=== PATIENT | female | born 1965 | race African-American/Black ===

== ENCOUNTER 2016-05-16 09:15 | Emergency (ER) | payer OTHER ==
[2016-05-16 09:19] VITALS: BP 142/86; PULSE 101; TEMP 99.6; BMI 25.8
--- NOTE | 2016-05-16 09:44 | PDOC ---
History of Present Illness - General Chief Complaint: Cold Symptoms Stated Complaint: Cold Symptoms/PAIN Time Seen by Provider: 05/16/16 09:35 History Source: Patient Exam Limitations: No Limitations - History of Present Illness Initial Comments: 05/16/16 09:41 Patient here with 2 days of fevers, chills, runny nose, generalized body aches. 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 Since that time is progressively become worse, has been using [id number] medications with minimal resolved. Timing/Duration: reports: changing over time, getting worse Severity: reports: mild, moderate Associated Symptoms: reports: chest pain/soreness, cough, fever/chills, nasal congestion, nasal drainage Past History - Travel Traveled outside of the country in the last 30 days: No Close contact w/someone who was outside of country & ill: No - Past Medical History Allergies/Adverse Reactions: Allergies Allergy/AdvReac Type Severity Reaction Status Date / Time No Known Allergies Allergy Verified 05/16/16 09:19 Home Medications: Ambulatory Orders Hydrochlorothiazide 25 mg PO PRN 08/11/15 Oseltamivir Phosphate [Tamiflu -] 75 mg PO BID #10 capsule 05/16/16 HTN: Yes - Immunization History Immunization Up to Date: Yes - Psycho/Social/Smoking Cessation Hx Anxiety: No Suicidal Ideation: No Smoking Status: No Smoking History: Never smoked Have you smoked in the past 12 months: No Number of Cigarettes Smoked Daily: 0 Hx Alcohol Use: No Drug/Substance Use Hx: No Substance Use Type: Alcohol Respiratory Specific PMHX - Complaint Specific PMHX Angina: No Bronchitis: No Pneumonia: No Pulmonary Embolus: No TB (Tuberculosis): No Review of Systems - Review of Systems Able to Perform ROS?: Yes Is the patient limited [place] proficient: Yes Constitutional: Yes: Symptoms Reported, See HPI, Chills, Fever, Loss of Appetite , Malaise, Weakness HEENTM: Yes: Symptoms Reported, See HPI, Nose Congestion, Throat Pain Respiratory: Yes: Symptoms reported, See HPI, Cough, Wheezing Cardiac (ROS): No: Symptoms Reported ABD/GI: Yes: Symptoms Reported, See HPI, Nausea, Poor Appetite : No: Symptoms Reported Neurological: Yes: Symptoms reported, See HPI, Headache All Other Systems: Reviewed and Negative *Physical Exam - Vital Signs Last Vital Signs Temp Pulse Resp BP Pulse Ox 99.6 F 101 H 20 142/86 98 05/16/16 09:17 05/16/16 09:17 05/16/16 09:05/16/16 09:05/16/16 09:17 - Physical Exam General Appearance: Yes: Appropriately Dressed, Apparent Distress, Mild Distress HEENT: positive: NATALIE, TMs Normal (congested but landmarks easily visualized), Nasal Congestion, Rhinorrhea Neck: positive: Supple, Lymphadenopathy (R), Lymphadenopathy (L). negative: Tender Respiratory/Chest: positive: Lungs Clear (coarse but clear., ). negative: Chest Tender Cardiovascular: positive: Regular Rhythm, Regular Rate Extremity: positive: Normal Capillary Refill, Normal Inspection Integumentary: positive: Normal Color, Pale Neurologic: positive: parent trainer II-XII NML intact, Fully Oriented, Alert, Normal Mood/ Affect, Normal Response, Motor Strength 5/5 *DC/Admit/Observation/Transfer Diagnosis at time of Disposition: Upper respiratory infection, acute - Discharge Dispostion Disposition: HOME Condition at time of disposition: Stable Admit: No - Prescriptions Prescriptions: Oseltamivir Phosphate [Tamiflu -] 75 mg PO BID #10 capsule - Patient Instructions Printed Discharge Instructions: DI for Viral Upper Respiratory Infection -- Adult Additional Instructions: Rest, drink lots of fluids: Teas, water, soups, Pedialyte Saltwater gargles Steamy showers/seem to face break up mucus Old-fashioned treatments help! Avoid contact with others until fevers and cough resolved as this is very contagious Lots of handwashing and good hygiene Continue [id number]-[id number] medications for symptomatic relief Tylenol or Motrin for fever and pain Take all of Tamiflu as directed: 1 tab every 12 hours for 5 days Followup with private physician in one to 2 days as needed or if worsening Return to emergency department for worsened symptoms, fevers, dehydration Influenza takes between 5 and 7 days for resolution To not participate in any activity, work, or school until fevers and cough are gone for at least one day - Post Discharge Activity Work/School Note: Back to Work
== END 2016-05-16 09:59 | disposition home or self-care (01) ==
LOC: JERFT 09:15
DX: J06.9 Acute upper respiratory infection, unspecified (principal); I10 Essential (primary) hypertension
CPT/HCPCS: 99281-25

== ENCOUNTER 2016-08-29 16:30 | Emergency (ER) | payer OTHER ==
[2016-08-29 16:36] VITALS: BP 129/43; PULSE 83; TEMP 98.8; BMI 25.0
[2016-08-29] MEDS ORDERED: KETOROLAC TROMETHAMINE 60 MG/2 ML VIAL ONE (17:49)
[2016-08-29 17:53] LABS: URINE APPEARANCE CLEAR; URINE BILIRUBIN NEGATIVE (NEGATIVE); URINE COLOR DKYELLOW; URINE GLUCOSE (UA) NEGATIVE (NEGATIVE); URINE KETONE TRACE (NEGATIVE); URINE LEUK ESTERASE NEGATIVE (NEGATIVE); URINE NITRITE NEGATIVE (NEGATIVE); URINE PROTEIN NEGATIVE (NEGATIVE); URINE UROBILINOGEN NEGATIVE E.U./dl (0.2-1.0)
[2016-08-29 17:57] LABS: URINE BLOOD 1+ (NEGATIVE)
[2016-08-29 18:00] LABS: URINE MUCUS RARE; URINE RBC 1 /hpf (0-3)
--- NOTE | 2016-08-29 18:08 | PDOC ---
History of Present Illness - General Chief Complaint: Pain Stated Complaint: LEG PAIN/EMPLOYEE Time Seen by Provider: 08/29/16 16:57 Past History - Past Medical History Allergies/Adverse Reactions: Allergies Allergy/AdvReac Type Severity Reaction Status Date / Time No Known Allergies Allergy Verified 08/29/16 16:36 HTN: Yes - Immunization History Immunization Up to Date: Yes - Psycho/Social/Smoking Cessation Hx Anxiety: No Suicidal Ideation: No Smoking Status: No Smoking History: Never smoked Have you smoked in the past 12 months: No Number of Cigarettes Smoked Daily: 0 Hx Alcohol Use: No Drug/Substance Use Hx: No Substance Use Type: None *Physical Exam - Vital Signs Last Vital Signs Temp Pulse Resp BP Pulse Ox 98.8 F 83 20 129/43 100 08/29/16 16:33 08/29/16 16:33 08/29/16 16:33 08/29/16 16:33 08/29/16 16:33 ED Treatment Course - ADDITIONAL ORDERS Additional order review: Laboratory Results 08/29/16 17:40 Urine Color Dkyellow Urine Appearance Clear Urine pH 6.0 Urine Protein Negative Urine Glucose (UA) Negative Urine Ketones Trace H Urine Blood 1+ H Urine Nitrite Negative Urine Bilirubin Negative Urine Urobilinogen Negative Ur Leukocyte Esterase Negative Urine HCG, Qual Negative - RADIOLOGY Radiology Studies Ordered: Category Date Time Status SPINE-LUMBAR SACRAL [RAD] Stat Radiology 08/29/16 17:31 Ordered
--- NOTE | 2016-08-29 18:08 | PDOC ---
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 Patient has multiple complaints states has pain to her right shoulder that radiates to her elbow, states has pain to her left hand that shoots up to left elbow, states sometimes has pain to her left gluteus. Patient has never been diagnosed with any chronic rheumatology issues and has had an evaluation for lumbar spine injury last year by Dr. tuttle. Was given Valium and anti-inflammatories with good resolved. Patient did not follow-up for any further visits. States is never sought medical attention for these issues but states woke up this morning with significant pain in the same dermatomes that ibuprofen did not resolve. Denies swelling to her leg although has sensation of swelling. Denies numbness or tingling to foot, denies any recent trauma, any chest exercise changes and has not been to the gym for over a month secondary to this pain. Occurred: reports: other Severity: reports: moderate Pain Location: reports: back Modifying Factors: improves with: None Loss of Consciousness: no loss of consciousness Past History - Travel Traveled outside of the country in the last 30 days: No Close contact w/someone who was outside of country & ill: No - Past Medical History Allergies/Adverse Reactions: Allergies Allergy/AdvReac Type Severity Reaction Status Date / Time No Known Allergies Allergy Verified 08/29/16 16:36 Home Medications: Ambulatory Orders Cyclobenzaprine HCl [Flexeril 10 mg] 10 mg PO BID PRN #14 tablet 08/29/16 Naproxen [Naprosyn -] 500 mg PO BID #14 tablet 08/29/16 HTN: Yes - Immunization History Immunization Up to Date: Yes - Psycho/Social/Smoking Cessation Hx Anxiety: No Suicidal Ideation: No Smoking Status: No Smoking History: Never smoked Have you smoked in the past 12 months: No Number of Cigarettes Smoked Daily: 0 Hx Alcohol Use: No Drug/Substance Use Hx: No Substance Use Type: None Trauma Specific PMHX - Complaint Specific PMHX Back Injury: Yes (last year treated for spasm ) Review of Systems - Review of Systems Able to Perform ROS?: Yes Is the patient limited Bulgarian proficient: Yes Constitutional: Yes: See HPI. No: Symptoms Reported, Fever, Malaise Respiratory: No: Symptoms reported : Yes: See HPI. No: Symptoms Reported, Burning, Dysuria, Frequency, Hematuria Musculoskeletal: Yes: Symptoms Reported, See HPI, Muscle Pain (anterior right thigh and extending to upper patella, in L2- L3 dermatome) Neurological: Yes: Tingling All Other Systems: Reviewed and Negative *Physical Exam - Vital Signs Last Vital Signs Temp Pulse Resp BP Pulse Ox 98.8 F 83 20 129/43 100 08/29/16 16:33 08/29/16 16:33 08/29/16 16:33 08/29/16 16:33 08/29/16 16:33 - Physical Exam General Appearance: Yes: Nourished, Appropriately Dressed, Apparent Distress, Mild Distress HEENT: positive: NATALIE, Normal ENT Inspection, TMs Normal, Pharynx Normal Neck: positive: Supple. negative: Tender, Lymphadenopathy (R), Lymphadenopathy (L) Respiratory/Chest: positive: Lungs Clear, Normal Breath Sounds Cardiovascular: positive: Regular Rhythm Gastrointestinal/Abdominal: positive: Soft Musculoskeletal: positive: Normal Inspection, Decreased Range of Motion (with slow gait. ), Muscle Spasm. negative: Vertebral Tenderness Extremity: positive: Normal Capillary Refill, Tender (mild tenderness to Quads drawn contraction, no defect, no obvious swelling or erythema. Patient has some tension and tightness culture to the paravertebral spine primarily lumbar. No point tenderness along the vertebral spine, crepitus or step-offs. Able to bend at waist,) Integumentary: positive: Normal Color, Dry, Warm, Pale. negative: Rash Neurologic: positive: rehabilitation services counselor II-XII NML intact, Fully Oriented, Alert, Normal Mood/ Affect, Normal Response, Motor Strength 5/5 ED Treatment Course - ADDITIONAL ORDERS Additional order review: Laboratory Results 08/29/16 17:40 Urine HCG, Qual Negative - RADIOLOGY Radiology Studies Ordered: Category Date Time Status SPINE-LUMBAR SACRAL [RAD] Stat Radiology 08/29/16 17:31 Ordered Progress Note - Progress Note Progress Note: Discussed structural issues with dermatomes and all of areas of patient's complaints consistent with lumbar spine dermatome pain. 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 Obtained lumbar spine x-rays to help clear for possible soft tissue studies including MRI as deemed necessary by orthopedist. Dr. Calvillo willing to see patient tomorrow. No evidence of muscle injury or DVT. Medical Decision Making - Medical Decision Making 08/29/16 19:19 X-ray negative for fractures, although so some straightening which confirms muscle spasm. Patient states has some improvement after Toradol injection and will continue with antispasmodic, NSAIDs and follow-up the Dr. Calvillo tomorrow. *DC/Admit/Observation/Transfer Diagnosis at time of Disposition: Low back strain Qualifiers: Encounter type: initial encounter Qualified Code(s): S39.012A - Strain of muscle, fascia and tendon of lower back, initial encounter - Discharge Dispostion Disposition: HOME Condition at time of disposition: Stable Admit: No - Prescriptions Prescriptions: Cyclobenzaprine HCl [Flexeril 10 mg] 10 mg PO BID PRN #14 tablet PRN Reason: spasm Naproxen [Naprosyn -] 500 mg PO BID #14 tablet - Patient Instructions Printed Discharge Instructions: DI for Back Strain or Sprain Additional Instructions: Rest, no heavy lifting or exercise until pain is resolved Hot soaks to neck and low back as often as possible/hot showers or Jacuzzis No massage or therapy until spasm is gone Continue Naprosyn 1-500 mg tablets every 8 hours for the next 3 days then as needed for pain and swelling Cyclobenzaprine 1-10mg every 8 hours as needed for spasm If not significant improvement within 24 hours with medication and rest regime, followup with private physician for change in medications and /or therapy. - Post Discharge Activity Work/School Note: Back to Work
[2016-08-29] MEDS ORDERED: CYCLOBENZAPRINE HCL 10 MG TABLET (FP) PO ONE (18:10)
[2016-08-29] MEDS ORDERED: CYCLOBENZAPRINE HCL 10 MG TABLET (FP) ONE (19:07)
== END 2016-08-29 19:27 | disposition home or self-care (01) ==
LOC: JERFT 16:30
DX: S39.012A Strain of muscle, fascia and tendon of lower back, initial encounter (principal); X50.0XXA Overexertion from strenuous movement or load, initial encounter; X50.9XXA Other and unspecified overexertion or strenuous movements or postures, initial encounter; Y93.F9 Activity, other caregiving; Y92.89 Other specified places as the place of occurrence of the external cause; Y99.0 Civilian activity done for income or pay; I10 Essential (primary) hypertension
CPT/HCPCS: 72100-TC; 81003; 81015; 84703; 99281-25

== ENCOUNTER 2018-01-26 17:07 | Emergency (ER) | payer OTHER ==
[2018-01-26 17:49] VITALS: BP 140/80; PULSE 80; TEMP 98; BMI 21.2
--- NOTE | 2018-01-26 17:52 | PDOC ---
History of Present Illness - General Chief Complaint: Bone Injury Stated Complaint: INJURY TO HAND (EMPLOYEE) Time Seen by Provider: 01/26/18 17:39 History Source: Patient Exam Limitations: No Limitations - History of Present Illness Initial Comments: 01/26/18 17:46 52 yr female with injury to right wrist/forearm after a cabinet fell on her arm. Occurred: reports: just prior to arrival Extremity Pain Location - Extremity Pain Location Extremity Pain Locations: right: other (wrist ) Past History - Past Medical History Allergies/Adverse Reactions: Allergies Allergy/AdvReac Type Severity Reaction Status Date / Time No Known Allergies Allergy Verified 01/26/18 17:35 Home Medications: Ambulatory Orders Naproxen [Naprosyn] 500 mg PO BID PRN #20 tablet 01/26/18 COPD: No CHF: No HTN: Yes - Immunization History Immunization Up to Date: Yes - Suicide/Smoking/Psychosocial Hx Smoking Status: No Smoking History: Never smoked Have you smoked in the past 12 months: No Number of Cigarettes Smoked Daily: 0 Information on smoking cessation initiated: No Hx Alcohol Use: No Drug/Substance Use Hx: No Substance Use Type: None Review of Systems - Review of Systems Able to Perform ROS?: Yes Is the patient limited Greek proficient: No Musculoskeletal: Yes: Symptoms Reported *Physical Exam - Vital Signs Last Vital Signs Temp Pulse Resp BP Pulse Ox 98 F 80 16 140/80 100 01/26/18 17:31 01/26/18 17:31 01/26/18 17:31 01/26/18 17:31 01/26/18 17:31 - Physical Exam General Appearance: Yes: Nourished, Appropriately Dressed HEENT: positive: EOMI, NATALIE Neck: positive: Supple Extremity: positive: Normal Capillary Refill, Normal Inspection, Normal Range of Motion, Tender (right distal radius , nv intact bruising noted to the distal radius ), Swelling Integumentary: positive: Normal Color, Dry, Warm, Bruising (right wrist distal radius ) Neurologic: positive: Fully Oriented, Normal Response, Motor Strength 5/5 Procedures - Splinting Splint Location: Right: Wrist (valentine wrap placed to wrist ) ED Treatment Course - RADIOLOGY Radiology Studies Ordered: Category Date Time Status FOREARM- RIGHT [RAD] Stat Radiology 01/26/18 17:44 Ordered WRIST W/HAND-RIGHT* [RAD] Stat Radiology 01/26/18 17:44 Ordered Medical Decision Making - Medical Decision Making 01/28/18 12:46 cc: right wrist injury cabinet fell from the wall onto the wrist at work causing pain and swelling pt is right hand dominant xray is negative for fracture will treat for bone contusion strict follow up ints. given pt agrees with plan of care 01/28/18 13:00 *DC/Admit/Observation/Transfer Diagnosis at time of Disposition: Contusion Qualifiers: Encounter type: initial encounter Contusion area: wrist Laterality: right Qualified Code(s): S60.211A - Contusion of right wrist, initial encounter - Discharge Dispostion Disposition: HOME Condition at time of disposition: Good - Prescriptions Prescriptions: Naproxen [Naprosyn] 500 mg PO BID PRN #20 tablet PRN Reason: Pain - Referrals Referrals: Masoud Amador [Primary Care Provider] - - Patient Instructions Additional Instructions: apply ice every 2hrs for 20 minutes for the next 2 days while awake use the valentine wrap at all times except to bathe and sleep take naproxen for pain as directed follow with your orthopedist this week if any worsening symptoms follow with employee health to be cleared to return to work - Post Discharge Activity Forms/Work/School Notes: Back to Work
[2018-01-26] MEDS ORDERED: NAPROXEN 500 MG TABLET (FP) PO ONE (18:02)
[2018-01-26] MEDS ORDERED: NAPROXEN 500 MG TABLET (FP) ONE (18:09)
== END 2018-01-26 18:18 | disposition home or self-care (01) ==
LOC: JERFT 17:07 → JER 17:07 → JERFT 18:18
DX: S60.211A Contusion of right wrist, initial encounter (principal); W22.8XXA Striking against or struck by other objects, initial encounter; Y93.89 Activity, other specified; Y92.238 Other place in hospital as the place of occurrence of the external cause; Y99.0 Civilian activity done for income or pay
CPT/HCPCS: 73090-TC-RT-FY; 73110-TC-RT-FY; 73130-TC-RT-FY; 99281-25

== ENCOUNTER 2018-02-02 06:48 | Observation (INO) | payer OTHER ==
[2018-02-02] MEDS ORDERED: NITROGLYCERIN SUBLINGUAL 1/150 0.4 MG TAB SL ONE ×2 (06:55→07:05)
[2018-02-02 06:57] VITALS: BMI 24.7
[2018-02-02] MEDS ORDERED: ASPIRIN 81 MG CHEWABLE TABLETS PO ONE (07:04)
[2018-02-02] MEDS ORDERED: MAG HYDROX/AL HYDROX/SIMETH 30 ML UNIT-DOSE CUP PO ONE (07:05)
--- NOTE | 2018-02-02 07:14 | PDOC ---
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 Patient reported intermittent midsternal chest pressure with no radiation or shortness of breath. Unclear if this is exertional. Never had a stress test or an echocardiogram in the past. No recent illnesses, fevers, chills, cough, vomiting. No history of blood clots. No family history of cardiac disease. Does not smoke. However, patient is noted that symptoms have worsened today. [place] a 10 out of 10 midsternal chest pressure reportedly described as crushing. Patient is brought to the ED and evaluated. She was given a sub-lingual nitroglycerin glycerin tablets with significant improvement of the chest pain. - Physicial Exam PE: 02/02/18 08:27 GENERAL: Awake, alert, and fully oriented, in no acute distress HEAD: No signs of trauma EYES: EOMI, sclera anicteric, conjunctiva clear ENT: Auricles normal inspection, hearing grossly normal, nares patent, Moist mucosa NECK: Normal ROM, supple LUNGS: Breath sounds equal, clear to auscultation bilaterally. No wheezes, and no crackles HEART: Regular rate and rhythm, normal S1 and S2, no murmurs, rubs or gallops ABDOMEN: Soft, nontender, No guarding, no rebound. No masses EXTREMITIES: Normal range of motion, no edema. No clubbing or cyanosis. No cords, erythema, or tenderness NEUROLOGICAL: Cranial nerves II through XII grossly intact. Normal speech SKIN: Warm, Dry, normal turgor, no rashes or lesions noted. - Medical Decision Making 02/02/18 08:27 Vital Signs Temp Pulse Resp BP Pulse Ox 98.0 F 67 15 144/102 H 100 02/02/18 06:54 02/02/18 07:32 02/02/18 07:32 02/02/18 07:32 02/02/18 07:32 Given the circumstances, we'll need to rule out myocardial infarction. We'll see and evaluate for acute coronary syndrome. Low suspicion for pulmonary embolism but will send a d-dimer. If the d-dimer is negative, I feel comfortable clearing the patient from pulmonary embolus and. Give aspirin and admit the patient to the hospital for further evaluation. 02/02/18 09:15 CBC, BMP 02/02/18 07:35 02/02/18 07:35 CMP Sodium 139 mmol/L (136-145) 02/02/18 07:35 Potassium 4.0 mmol/L (3.5-5.1) 02/02/18 07:35 Chloride 105 mmol/L (98-107) 02/02/18 07:35 Carbon Dioxide 26 mmol/L (21-32) 02/02/18 07:35 Anion Gap 8 MMOL/L (8-16) 02/02/18 07:35 BUN 11 mg/dL (7-18) 02/02/18 07:35 Creatinine 0.7 mg/dL (0.55-1.3) 02/02/18 07:35 Creat Clearance w eGFR > 60 (>60) 02/02/18 07:35 Random Glucose 89 mg/dL (74-106) 02/02/18 07:35 Calcium 8.9 mg/dL (8.5-10.1) 02/02/18 07:35 Total Bilirubin 1.0 mg/dL (0.2-1) 02/02/18 07:35 AST 25 U/L (15-37) 02/02/18 07:35 ALT 28 U/L (13-61) 02/02/18 07:35 Alkaline Phosphatase 78 U/L (45-117) 02/02/18 07:35 Creatine Kinase 111 IU/L (26-192) 02/02/18 07:35 Troponin I < 0.02 ng/ml (0.00-0.05) 02/02/18 07:35 Total Protein 7.0 g/dl (6.4-8.2) 02/02/18 07:35 Albumin 3.8 g/dl (3.4-5.0) 02/02/18 07:35 Cholesterol 228 mg/dL (50-200) H 02/02/18 07:35 Discharge Disposition - Diagnosis Chest pain Qualifiers: Chest pain type: unspecified Qualified Code(s): R07.9 - Chest pain, unspecified - Discharge Dispostion Condition at time of disposition: Stable Last Admission D/C Date: 06/26/00 Decision to Admit order: Yes - Referrals Referrals: Masoud Amador [Primary Care Provider] - - Patient Instructions - Post Discharge Activity Heart Score/ECG Review - History History: Highly suspicious - Electrocardiogram EKG: Normal - Age Age: 45-65 - Risk Factors Risk Factors Heart Score: Yes Hx Hypertension Based on the list above the patient has:: 1-2 risk factors - Troponin Troponin: </= normal limit - Score Heart Score - Total: 4 #1 ECG reviewed & interpreted by me at: 07:00 02/02/18 07:13 NSR 82, no std/madelyn, normal axis, normal intervals, T wave flat III, QTC 453 msec
[2018-02-02] MEDS ORDERED: MAG HYDROX/AL HYDROX/SIMETH 30 ML UNIT-DOSE CUP ONE (07:16)
[2018-02-02] MEDS ORDERED: ASPIRIN 81 MG CHEWABLE TABLETS ONE (07:16)
[2018-02-02] MEDS ORDERED: ACETAMINOPHEN 325 MG TABLET (FP) ONE ×2 (07:16→07:19)
--- NOTE | 2018-02-02 07:19 | PDOC ---
History of Present Illness - General Chief Complaint: Pain Stated Complaint: CHEST PAIN Time Seen by Provider: 02/02/18 07:07 - History of Present Illness Initial Comments: 02/02/18 07:48 The patient is a 52 year old female with a history of HTN who presents for evaluation of chest pain. The patient reports a 1 week history of intermittent chest pain. The patient states that earlier this morning she began experiencing crushing substernal chest pain that was persistent and more severe than in the past prompting her presentation to the ED for further evaluation. She denies any worsening symptoms with exercise and otherwise denies fevers, chills, SOB, nausea, vomiting, abdominal pain, or changes with urination or bowel movements. Past History - Past Medical History Allergies/Adverse Reactions: Allergies Allergy/AdvReac Type Severity Reaction Status Date / Time No Known Allergies Allergy Verified 02/02/18 06:53 Home Medications: Ambulatory Orders Hydrochlorothiazide [Hctz -] 25 mg PO ASDIR 02/02/18 COPD: No CHF: No HTN: Yes - Immunization History Immunization Up to Date: Yes - Suicide/Smoking/Psychosocial Hx Smoking Status: No Smoking History: Never smoked Have you smoked in the past 12 months: No Number of Cigarettes Smoked Daily: 0 Information on smoking cessation initiated: No Hx Alcohol Use: No Drug/Substance Use Hx: No Substance Use Type: None Review of Systems - Review of Systems Comments:: 02/02/18 07:53 Constitutional: No fevers, chills, fatigue, malaise HEENT: No Rhinorrhea, nasal congestion, visual changes Cardiovascular: Chest pain. No syncope, palpitations, lightheadedness Respiratory: No Cough, SOB, Hemoptysis, Gastrointestinal: No Abdominal pain, Nausea, Vomiting, Constipation, Diarrhea, Melena Genitourinary: No Dysuria, Frequency, Urgency, Hesitancy, Hematuria, Flank pain Musculoskeletal: No Myalgia, arthralgia Skin: No rashes, itching, bruising, pallor Neurologic: No Headache, Dizziness, Numbness, Weakness, or Tingling Psychiatric: No Hallucinations. No SI or HI *Physical Exam - Vital Signs Last Vital Signs Temp Pulse Resp BP Pulse Ox 98.0 F 91 H 20 182/124 H 100 02/02/18 06:54 02/02/18 06:54 02/02/18 06:54 02/02/18 06:54 02/02/18 06:54 - Physical Exam Comments: 02/02/18 08:00 General Appearance: Nourished. No Apparent Distress HEENT: No Pharyngeal Erythema, Tonsillar Exudate, Tonsillar Erythema Neck: No Cervical Lymphadenopathy Respiratory/Chest: Lungs Clear, Normal Breath Sounds. No Crackles, Rales, Rhonchi, Wheezing Cardiovascular: Regular Rhythm, Regular Rate. No Murmur, Gallops, Rubs Gastrointestinal/Abdominal: Normal Bowel Sounds, Soft. No Guarding, Rebound, Tenderness Musculoskeletal: No CVA Tenderness Extremity: Normal Capillary Refill Integumentary: Normal Color, Dry, Warm Neurologic: Fully Oriented, Alert, Normal Mood/Affect, Normal Response, Heart Score/ECG Review - History History: Highly suspicious - Electrocardiogram EKG: Normal - Age Age: 45-65 - Risk Factors Risk Factors Heart Score: Yes Hx Hypertension Based on the list above the patient has:: 1-2 risk factors - Troponin Troponin: </= normal limit - Score Heart Score - Total: 4 #1 ECG reviewed & interpreted by me at: 08:01 General ECG Interpretation: Sinus Rhythm, Normal Rate, Normal Intervals, No acute ischemic changes ED Treatment Course - LABORATORY CBC & Chemistry Diagram: 02/02/18 07:35 02/02/18 07:35 - Medications Given in the ED: ED Medications Discontinued Medications Generic Name Dose Route Start Last Admin Trade Name Freq PRN Reason Stop Dose Admin Nitroglycerin 0.4 mg 02/02/18 06:55 02/02/18 07:00 Nitrostat - SL 02/02/18 06:56 0.4 mg ONCE ONE Administration Nitroglycerin 0.4 mg 02/02/18 07:05 02/02/18 07:05 Nitrostat - SL 02/02/18 07:06 0.4 mg ONCE ONE Administration Medical Decision Making - Medical Decision Making 02/02/18 08:11 The patient is a 52 year old female with a history of HTN who presents for evaluation of chest pain. Differential includes but is not limited to: ACS, PE , Musculoskeletal, Infectious, Metabolic Derangement. Given the patient's history and physical exam, we will obtain a cbc, cmp, troponin, d-dimer, coags, ekg, chest plain film to evaluate further. The patient reports improvement in her symptoms after receiving nitroglycerin. We will treat with aspirin, mylanta , tylenol and continue to monitor and reassess while here in the ED. The patient will likely require observation admission given her presenting symptoms and exam. 02/02/18 16:04 CBC, cmp, troponin, d-dimer,coags are unremarkable. Chest plain film is unremarkable. However, given the patient's history as well as resolving chest pain with nitroglycerin, we believe she requires observation admission for further management and work up. We discussed the case with the admitting team who accepted the patient for admission. *DC/Admit/Observation/Transfer Diagnosis at time of Disposition: Chest pain Qualifiers: Chest pain type: unspecified Qualified Code(s): R07.9 - Chest pain, unspecified - Discharge Dispostion Condition at time of disposition: Stable Decision to Admit order: Yes - Referrals - Patient Instructions - Post Discharge Activity
[2018-02-02] MEDS ORDERED: ACETAMINOPHEN 325 MG TABLET (FP) PO ONE (07:58)
[2018-02-02 07:59] LABS: BASO % 0.7 % (0-2.0); EOS % 0.7 % (0-4.5); HEMATOCRIT 36.1 % (32.4-45.2); HEMOGLOBIN 12.6 GM/dL (10.7-15.3); LYMPH % 36.9 % (8-40); MCH 33.2 pg (25.7-33.7); MCHC 34.9 g/dl (32.0-36.0); MEAN CELL VOLUME 95.2 fl (80-96); MEAN PLT VOLUME 9.1 fl (7.5-11.1); MONO % 10.3 % (3.8-10.2); NEUT % 51.4 % (42.8-82.8); PLATELET COUNT 190 K/MM3 (134-434); RBC 3.79 M/mm3 (3.60-5.2); RDW 12.2 % (11.6-15.6); WHITE BLOOD COUNT 4.9 K/mm3 (4.0-10.0)
[2018-02-02 08:10] LABS: INR 1.12 (0.83-1.09); PROTHROMBIN TIME (PATIENT) 13.2 SEC (9.7-13.0)
[2018-02-02 08:12] LABS: ACTIVATED PTT 35.5 SECONDS (25.2-36.5)
[2018-02-02 09:01] LABS: ALBUMIN 3.8 g/dl (3.4-5.0); ALK PHOS 78 U/L (45-117); ANION GAP 8 MMOL/L (8-16); BLOOD UREA NITROGEN 11 mg/dL (7-18); CALCIUM 8.9 mg/dL (8.5-10.1); CHLORIDE 105 mmol/L (98-107); CHOLESTEROL 228 mg/dL (50-200); CO2 26 mmol/L (21-32); CREATININE 0.7 mg/dL (0.55-1.3); GLUCOSE,RANDOM 89 mg/dL (74-106); SGOT/AST 25 U/L (15-37); SGPT/ALT 28 U/L (13-61); SODIUM 139 mmol/L (136-145)
[2018-02-02] MEDS ORDERED: HYDROCHLOROTHIAZIDE 25 MG TABLET (FP) PO ONE (11:12)
[2018-02-02] MEDS ORDERED: HYDROCHLOROTHIAZIDE 25 MG TABLET (FP) ONE (11:13)
--- NOTE | 2018-02-02 11:40 | HP ---
CHIEF COMPLAINT: PCP:Masoud Amador MD HISTORY OF PRESENT ILLNESS: 52F with pmh of HTN and chronic lower back pain due to L2 L3 slipped disc, presents to the hospital with midsternal chest pain. She states she woke up to use the bathroom around 1am and noticed she was having chest pain. The pain did not get beteer by 3am and her brought her to the hospital. She denies Radiation of the pain, nausea, vomiting, fever, chills, shortness of breath, lower extremity edema, diaphoresis, GI, or symptoms. She states she has had chest pain for the last 4-5 weeks. She denies pain happening in certain situations. She states the pain has happened both at rest and during activity. Last night when she had an episode of chest pain she was watching a movie wit her daughters. ER course was notable for: (1)Aspirin (2)Labs (3)EKG Recent Travel:Denies PAST MEDICAL HISTORY:As above PAST SURGICAL HISTORY:Denies Social History: Smoking:Denies Alcohol:Denies Drugs: Denies Family History:Father of "heart condition and stroke at 72" Allergies No Known Allergies Allergy (Verified 02/02/18 06:53) HOME MEDICATIONS: Home Medications Medication Instructions Recorded Hydrochlorothiazide [Hctz -] 25 mg PO ASDIR 02/02/18 REVIEW OF SYSTEMS CONSTITUTIONAL: Absent: fever, chills, diaphoresis, generalized weakness, malaise, loss of appetite, weight change HEENT: Absent: rhinorrhea, nasal congestion, throat pain, throat swelling, difficulty swallowing, mouth swelling, ear pain, eye pain, visual changes CARDIOVASCULAR: Absent: syncope, palpitations, irregular heart rate, lightheadedness, peripheral edema Present:chest pain RESPIRATORY: Absent: cough, shortness of breath, dyspnea with exertion, orthopnea, wheezing, stridor, hemoptysis GASTROINTESTINAL: Absent: abdominal pain, abdominal distension, nausea, vomiting, diarrhea, constipation, melena, hematochezia GENITOURINARY: Absent: dysuria, frequency, urgency, hesitancy, hematuria, flank pain, genital pain MUSCULOSKELETAL: Absent: myalgia, arthralgia, joint swelling, neck pain Present: back pain SKIN: Absent: rash, itching, pallor HEMATOLOGIC/IMMUNOLOGIC: Absent: easy bleeding, easy bruising, lymphadenopathy, frequent infections ENDOCRINE: Absent: unexplained weight gain, unexplained weight loss, heat intolerance, cold intolerance NEUROLOGIC: Absent: headache, focal weakness or paresthesias, dizziness, unsteady gait, seizure, mental status changes, bladder or bowel incontinence PSYCHIATRIC: Absent: anxiety, depression, suicidal or homicidal ideation, hallucinations. PHYSICAL EXAMINATION Vital Signs - 24 hr 02/02/18 02/02/18 02/02/18 06:54 07:32 11:10 Temperature 98.0 F Pulse Rate 91 H Pulse Rate [ 67 69 Apical] Respiratory 20 15 15 Rate Blood Pressure 182/124 H Blood Pressure 146/100 [Left Arm] Blood Pressure 144/102 H 151/106 H [Right] O2 Sat by Pulse 100 100 100 Oximetry (%) GENERAL: Awake, alert, and fully oriented, in no acute distress. HEAD: Normal with no signs of trauma. EYES: Pupils equal, round and reactive to light, extraocular movements intact, sclera anicteric, conjunctiva clear EARS, NOSE, THROAT: Moist mucous membranes. NECK: Normal range of motion, supple without JVD LUNGS: Breath sounds equal, clear to auscultation bilaterally. No wheezes, and no crackles. No accessory muscle use. HEART: Regular rate and rhythm, normal S1 and S2 without murmur, rub or gallop. There is some sternal tenderness ABDOMEN: Soft, nontender, not distended, normoactive bowel sounds, no guarding, no rebound, no masses. MUSCULOSKELETAL: Normal range of motion at all joints. No bony deformities or tenderness. No CVA tenderness. UPPER EXTREMITIES: warm, well-perfused. No cyanosis. No clubbing. No peripheral edema. LOWER EXTREMITIES: warm, well-perfused. No calf tenderness. No peripheral edema. NEUROLOGICAL: Cranial nerves II-XII intact. Normal speech. PSYCHIATRIC: Cooperative. Good eye contact. Appropriate mood and affect. Tearful when told she has to stay. SKIN: Warm, dry, normal turgor Laboratory Results - last 24 hr 02/02/18 02/02/18 02/02/18 07:35 07:35 07:35 WBC 4.9 RBC 3.79 Hgb 12.6 Hct 36.1 MCV 95.2 MCH 33.2 MCHC 34.9 RDW 12.2 Plt Count 190 D MPV 9.1 Absolute Neuts (auto) 2.5 Neutrophils % 51.4 Lymphocytes % 36.9 D Monocytes % 10.3 H Eosinophils % 0.7 Basophils % 0.7 Nucleated RBC % 0 PT with INR 13.20 H INR 1.12 H PTT (Actin FS) 35.5 D-Dimer Sodium 139 Potassium 4.0 Chloride 105 Carbon Dioxide 26 Anion Gap 8 BUN 11 Creatinine 0.7 Creat Clearance w eGFR > 60 Random Glucose 89 Calcium 8.9 Total Bilirubin 1.0 AST 25 ALT 28 Alkaline Phosphatase 78 Creatine Kinase 111 Troponin I < 0.02 Total Protein 7.0 Albumin 3.8 Cholesterol 228 H 02/02/18 07:58 WBC RBC Hgb Hct MCV MCH MCHC RDW Plt Count MPV Absolute Neuts (auto) Neutrophils % Lymphocytes % Monocytes % Eosinophils % Basophils % Nucleated RBC % PT with INR INR PTT (Actin FS) D-Dimer 217 Sodium Potassium Chloride Carbon Dioxide Anion Gap BUN Creatinine Creat Clearance w eGFR Random Glucose Calcium Total Bilirubin AST ALT Alkaline Phosphatase Creatine Kinase Troponin I Total Protein Albumin Cholesterol EKG: LVH otherwise NSR CXR: No acute pathology ASSESSMENT/PLAN: 52F with history of HTN presents to the hospital for atypical chest pain. Atypical Chest pain: R/O ACS. Pain got better with nitroglycerin but also got Mylanta and Tylenol and feels much better. Patient has had pain for over a month. not exertional. COuld be costochondritis. Could be GERD Will place on observation trend troponins Lipid panel cardiology consult Echo Exercise stress test HTN/Hypertensive urgency Restart HCTZ 25mg PO daily MARCI better controlled now start Ramipril 5mg po daily Slipped disc at L2-L3 Pain control outpatient follow up FEN: No IVF No electrolyte issues regular diet PPx: Lovenox/SCDs Early ambulation Case discussed with attending Dr. Jennings Visit type - Emergency Visit Emergency Visit: Yes Care time: The patient presented to the Emergency Department on the above date and was hospitalized for further evaluation of their emergent condition. - New Patient This patient is new to me today: Yes Date on this admission: 02/02/18 - Critical Care Critical Care patient: No
[2018-02-02] MEDS ORDERED: ATORVASTATIN CA 10 MG TABLET (FP) PO ONE (11:49)
[2018-02-02] MEDS ORDERED: ATORVASTATIN CA 20 MG TABLET (FP) PO ONE (11:49)
[2018-02-02] MEDS ORDERED: RAMIPRIL 5 MG CAPSULE (FP) PO SCH (12:00)
[2018-02-02] MEDS ORDERED: amLODIPine BESYLATE 5 MG TABLET (FP) PO ONE (12:05)
--- NOTE | 2018-02-02 12:08 | PN ---
Teaching Attending Note Name of Resident: Radu Hahn ATTENDING PHYSICIAN STATEMENT I saw and evaluated the patient. I reviewed the resident's note and discussed the case with the resident. I agree with the resident's findings and plan as documented. SUBJECTIVE: OBJECTIVE: ASSESSMENT AND PLAN: this is a 52 y/o female patient with a history of newly diagnosed HTN, presented to the ER for an atypical chest pain that has been going on for the past few weeks, according to the patient this pain comes and goes retrosternal, can be exacerbated by movement. the patient feels tenderness on her chest if there is deep palpations plan: tele observation lipid panel consult cardiology stress test tomorrow start patient on atorvastatin 20mg daily obtain TSH obtain A1C HTN; start the patient on ramipril 5mg daily start chlorothaladone 25mg daily consider adding CCB if the patient BP is still elevated after uptitrating the ramipril to 10mg obtain A1C
[2018-02-02 12:12] LABS: HDL CHOLESTEROL 85 mg/dL (40-60); TRIGLYCERIDES 54 mg/dL (0-150)
--- NOTE | 2018-02-02 12:42 | CONSULT ---
Consult - text type - Consultation Consultation Note: Cardiology (Dr. Brice covering Dr. Aranda) Patient seen and examined in ED 52 yo AA female Employe in [employer] ED Known h/o HTN for the past 3 years Admits non-compliance with thiazide which she started 3 years ago No known h/o CAD, DM, tobacco use or HPL Very active female who exercises regularly. Was at the gym yesterday and of US[employer] In the evening developed moderate intensity chest pain and was present at 3AM When she awoke this AM was 10/10 severe intensity. No radiation of pain, no diaphoresis, dyspnea or associated nausea BP at home has been usually 130s/80s per her recollection She has been experiencing intermittent chest pains for the past 4-5 weeks with exertion. 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 No premature ASCVD. PE: BP 151/106mmHg, p 82/min Comfortable, no distress JVP normal, normal carotid upstroke Regular rate, no murmurs, no S4 Lungs are clear bilaterally Abd is soft without tenderness, no abd bruits Legs warm and perfused, no edema ECG: (02/02/2018 at 06:56 NSR at 82/min, no LVH no ishcemic changes. Labs: Trop 0.02, D-dimer 217 (neg), BUN/Cr 11/0.7, K 4, TC 228, HDL 85 IMP/Plan: 1) Hypertensive urgency -Etiology unclear but admits non-compliance with antihypertensive regimen -Ok to resume her HCTZ at 25mg daily -BP remains elevated and would add Amlodipine 5mg daily (first dose now) and monitor overnight for response -Chest pain without ischemic changes on ECG and troponin neg, likely related to HTN status. -She is an otherwise very active female and can safely follow up with Dr. Aranda as outpatient for further risk stratification.
[2018-02-02] MEDS ORDERED: amLODIPine BESYLATE 5 MG TABLET (FP) ONE (12:51)
[2018-02-02] MEDS ORDERED: ATORVASTATIN CA 10 MG TABLET (FP) ONE (12:52)
[2018-02-03 07:47] LABS: ANION GAP 6 MMOL/L (8-16); BLOOD UREA NITROGEN 9 mg/dL (7-18); CALCIUM 9.3 mg/dL (8.5-10.1); CHLORIDE 104 mmol/L (98-107); CO2 28 mmol/L (21-32); CREATININE 0.7 mg/dL (0.55-1.3); GLUCOSE,RANDOM 87 mg/dL (74-106); MAGNESIUM 2.1 mg/dL (1.8-2.4); PHOSPHOROUS 3.9 mg/dL (2.5-4.9); POTASSIUM 3.4 mmol/L (3.5-5.1); SODIUM 138 mmol/L (136-145)
--- NOTE | 2018-02-03 08:48 | PN ---
Progress Note, Physician Chief Complaint: cp History of Present Illness: no more cp. no back pain (had pain in L spine region where she has chronic pain from disc dz , but this was due to sleeping on sofa on DOA). no sob, orthopnea. no palpit, presyncope - Current Medication List Current Medications: Active Medications Atorvastatin Calcium (Lipitor -) 20 mg PO HS SAKSHI Chlorthalidone (Hygroton -) 25 mg PO DAILY SAKSHI Enoxaparin Sodium (Lovenox -) 40 mg SQ DAILY SAKSHI Ramipril (Altace -) 5 mg PO DAILY SAKSHI - Objective Vital Signs: Vital Signs Temperature 97.8 F 02/03/18 06:00 Pulse Rate 62 02/03/18 06:00 Respiratory Rate 18 02/03/18 06:00 Blood Pressure 117/71 02/03/18 06:00 O2 Sat by Pulse Oximetry (%) 100 02/03/18 05:00 Constitutional: Yes: Well Nourished, No Distress, Calm Cardiovascular: Yes: Regular Rate and Rhythm, S1, S2. No: Gallop, Murmur Respiratory: Yes: Regular, CTA Bilaterally. No: Accessory Muscle Use, Rales, Wheezes Extremities: No: Cold Edema: No Neurological: Yes: Alert, Oriented Psychiatric: No: Agitated Labs: CBC, BMP 02/02/18 07:35 02/03/18 05:30 INR, PTT INR 1.12 (0.83-1.09) H 02/02/18 07:35 Assessment/Plan ECG: (02/02/2018 at 06:56): NSR at 82/min, no LVH no ishcemic changes. CXR: central congestive changes vs weak insp effort. image reviewed: vasc redistribution pattern present, no effusion. normal mediastinum tele: NSR Hypertensive urgency, chest pain -initial BP 180s/120s--improved with thiazide (non-compliant with rx at home) -given HCTZ, amlodipine--bp controlled -changed to chlorthalidone, ramipril. 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 -needs close outpt f/u of BP control--agrees to f/u with us -chest pain without ischemic changes on ECG, and troponin neg x 3. suspect related to high BP on DOA (improved with BP control). sx's not suggestive of acute aorta pathology, normal mediastinum on CXR. -? chest pain etiology was GI related, gas/bloating--she is not certain -? mild chf present on CXR. no s/sx of chf. check BNP -echo and ETT today -plan d/c if testing is c/w low risk of CVD
[2018-02-03] MEDS ORDERED: PT OWN MED DRAWER 7, Y5N ONE (08:58)
[2018-02-03] MEDS ORDERED: HYDROCHLOROTHIAZIDE 25 MG TABLET (FP) PO SCH ×2 (10:00→10:45)
[2018-02-03] MEDS ORDERED: CHLORTHALIDONE 25 MG TABLET PO SCH (10:00)
[2018-02-03] MEDS ORDERED: ENOXAPARIN NA (PORCINE) 40 MG/0.4 ML DISP.SYRIN SQ SCH (10:00)
[2018-02-03] MEDS ORDERED: RAMIPRIL 5 MG CAPSULE (FP) PO SCH (10:00)
--- NOTE | 2018-02-03 10:33 | EKG ---
Test Reason : Blood Pressure : / mmHG Vent. Rate : 082 BPM Atrial Rate : 082 BPM P-R Int : 178 ms QRS Dur : 076 ms QT Int : 388 ms P-R-T Axes : 041 035 039 degrees QTc Int : 453 ms NORMAL SINUS RHYTHM NORMAL ECG WHEN COMPARED WITH ECG OF 11-AUG-2015 09:37, PREMATURE SUPRAVENTRICULAR COMPLEXES ARE NO LONGER PRESENT T WAVE VARIATION Confirmed by ERLIN THOMAS MD ([id number]) on 02/03/2018 10:32:44 AM Referred By: Confirmed By:ERLIN THOMAS MD
[2018-02-03 10:52] LABS: N-TERMINAL BNP 57.9 pg/ml (5-125)
--- NOTE | 2018-02-03 13:50 | TRE ---
Protocol Name : JOURDAN Max Work Load (METS*10) : 101 Time In Exercise Phase : 00:09:00 Max. Systolic BP : 182 mmHg Max Diastolic BP : 98 mmHg Max Heart Rate : 171 BPM Max Predicted Heart Rate : 167 BPM Attending Physician : DR. THOMAS Reason For Termination : Target Heart Rate Achieved Reason for Test : CHEST PAIN Stress Protocol : JOURDAN Rest HR : 100 BPM PeakEx METs : 10.1 METS Arrhythmias : Ventricular Premature Beats, Isolated Resting ECG : Normal Recovery ECG Response (OLD) : Overall Impression : Normal stress test Chest Pain : No Chest Pain HR Response To Exercise : Normal Overall HR Response To Exercise BP Response To Exercise : Normal Resting BP with Appropriate Response Functional Capacity : Above Average (> 20%) Diagnosis : 1. NEGATIVE STRESS TEST 2. APPROPRIATE BLOOD PRESSURE RESPONSE. PATIENT EXERCISED 9 MIN INTO STAGE 3 JOURDAN AND ACHIEVED 102% OF MPTHR 3. FAIR EXERCISE TOLERANCE AND CAPACITY 4. NO SIGNIFICANT ECG ABNORMALITIES WERE SEEN. OCCASIONAL PVCS Confirmed by MARTHA PERALES, ERLIN ([id number]) on 02/03/2018 1:50:29 PM
--- NOTE | 2018-02-03 13:56 | ECHO ---
Name: CARO YOKO Exam:Adult Echocardiogram Study Date: 02/03/2018 01:17 PM Age: 52 yrs Reason For Study: Chest pain Height: 68 in Weight: 165 lb BSA: 1.9 m2 MMode/2D Measurements & Calculations IVSd: 0.78 cm Ao root diam: 2.7 cm LVIDd: 4.4 cm LA dimension: 2.9 cm LVIDs: 2.8 cm LVPWd: 0.63 cm EDV(Teich): 87.9 ml LVOT diam: 1.9 cm ESV(Teich): 29.5 ml TAPSE: 2.2 cm RV S Kahlil: 11.7 cm/sec Doppler Measurements & Calculations MV E max kahlil: 64.5 cm/sec TR max kahlil: 219.0 cm/sec MV A max kahlil: 66.5 cm/sec TR max P.2 mmHg MV E/A: 0.97 Med Peak E' Kahlil: 5.9 cm/sec Med E/e': 11.0 Lat Peak E' Kahlil: 8.6 cm/sec Lat E/e': 7.5 Procedure A complete two-dimensional transthoracic echocardiogram was performed (2D, M-mode, Doppler and color flow Doppler). Left Ventricle The left ventricle is normal in size. Left ventricular systolic function is normal. Ejection Fraction = 65- 70%. No regional wall motion abnormalities noted. Right Ventricle The right ventricle is normal size. The right ventricular systolic function is normal. RV systolic TD I is 12 cm/s. Atria The left atrial size is normal. Right atrial size is normal. Mitral Valve There is mild mitral annular calcification. There is mild mitral regurgitation. Tricuspid Valve The tricuspid valve is normal in structure and function. There is mild tricuspid regurgitation. Right ventricular systolic pressure is normal. Aortic Valve There is mild aortic sclerosis.;. No aortic regurgitation is present. Pulmonic Valve The pulmonic valve is not well visualized. Trace to mild pulmonic valvular regurgitation. Great Vessels The aortic root is normal size. Pericardium/Pleura There is no pericardial effusion. Interpretation Summary The left ventricle is normal in size. Left ventricular systolic function is normal. No regional wall motion abnormalities noted. Ejection Fraction = 65-70%. The right ventricular systolic function is normal. The left atrial size is normal. Right atrial size is normal. There is mild mitral annular calcification. There is mild mitral regurgitation. There is mild tricuspid regurgitation. Right ventricular systolic pressure is normal. There is mild aortic sclerosis. No aortic regurgitation is present. Trace to mild pulmonic valvular regurgitation. There is no pericardial effusion. Previous study is not available for comparison Zain Araya MD 02/03/2018 01:55 PM
--- NOTE | 2018-02-03 15:31 | PN ---
Teaching Attending Note Name of Resident: Matilda Huerta ATTENDING PHYSICIAN STATEMENT I saw and evaluated the patient. I reviewed the resident's note and discussed the case with the resident. I agree with the resident's findings and plan as documented. SUBJECTIVE: Patient presented with ~3 weeks of atypical chest pain. Presented in hypertensive urgency. She was on thiazide diuretic as an outpatient but has not been compliant; restarted on her home meds to good effect. Sx remain resolved. Negative Stress test and echo with EF wnl w/o any WMAs. Pain likely 2/2 HTN Urgency. Encouraged complaince with her meds, ASA for primary prevention. JNC8 guidelines recommended for OP BP management. OBJECTIVE: VSS, BP improved at goal. Gen: AAOx3, NAD, resting in bed CV: RRR s1/2 no mgr Pulm: Lungs clear, sym exp GI: NT ND +BS x4 quads Ext: +pulses, no edema HEENT: NC AT EOMI PERRLA Neck: No jvd, trachea midline ASSESSMENT AND PLAN: 1) HTN Urgency 2) Atypical CP 3) Uncontrolled HTN 4) HLD 5) Overweight (BMI 24) DC on home meds for BP and encouraged compliance; followup with PCP for GDMT. Continue all other medications; ASA for primary prevention. Further management as per resident note. 35 minutes spent in this DC
--- NOTE | 2018-02-03 15:44 | DS ---
Physical Exam: SUBJECTIVE: Patient seen and examined at bedside this morning. She denies chest pain, palpitations, admits resolution of presenting symptoms. OBJECTIVE: Vital Signs Period Temp Pulse Resp BP Sys/Morrell Pulse Ox Last 24 Hr 97.8 F-98.4 F 62-79 15-20 117-162/68-100 100-100 PHYSICAL EXAM GENERAL: The patient is awake, alert, and fully oriented, in no acute distress. HEAD: Normal with no signs of trauma. EYES: PERRL, extraocular movements intact, sclera anicteric, conjunctiva clear. ENT: Ears normal, nares patent, oropharynx clear without exudates, moist mucous membranes. NECK: Trachea midline, full range of motion, supple. LUNGS: Breath sounds equal, clear to auscultation bilaterally, no wheezes, no crackles, no accessory muscle use. HEART: Regular rate and rhythm, S1, S2 without murmur, rub or gallop. ABDOMEN: Soft, nontender, nondistended, normoactive bowel sounds, no guarding, no rebound, no hepatosplenomegaly, no masses. EXTREMITIES: 2+ pulses, warm, well-perfused, no edema. NEUROLOGICAL: Cranial nerves II through XII grossly intact. Normal speech, gait not observed. PSYCH: Normal mood, normal affect. SKIN: Warm, dry, normal turgor, no rashes or lesions noted. LABS Laboratory Results - last 24 hr 02/02/18 02/03/18 02/03/18 19:40 05:30 05:30 Sodium 138 Potassium 3.4 L Chloride 104 Carbon Dioxide 28 Anion Gap 6 L BUN 9 Creatinine 0.7 Creat Clearance w eGFR > 60 Random Glucose 87 Hemoglobin A1c % 5.0 Calcium 9.3 Phosphorus 3.9 Magnesium 2.1 Troponin I < 0.02 B-Natriuretic Peptide 57.9 HOSPITAL COURSE: Date of Admission:02/02/18 Date of Discharge: 02/03/18 Patient is a 52 year old female with history of hypertension presented with complaint of chest pain. BP was 182/124. Started on Chlorthalidone and Ramipril , and EKG showed normal sinus rhythm at 82 beats per minute without ischemic changes. ECHO showed normal LV size, thickness, function with EF 65-70%. Stress test negative for ischemia. Cardiology consult discussed outpatient follow up with negative testing results. Chest pain resolved, without recurrence of presenting symptoms during hospital course. Discharged with home medication HCTZ, and new medications ramipril, and atorvastatin. Follow up with drawing box tender, and primary care provider within 3-5 days after discharge. Discussed importance of BP medication compliance, and follow up as outpatient. Minutes to complete discharge: 37 Discharge Summary Reason For Visit: CHEST PAIN Current Active Problems Chest pain (Acute) Condition: Stable - Instructions Diet, Activity, Other Instructions: You were evaluated for chest pain. You stress test, echocardiogrm, and EKG were negative. You will continue taking your Hydrochlorothiazide 25mg daily for your blood pressure You will also start taking Ramipril 5mg daily for your blood pressure Check your blood pressure daily and record the findings. Bring the records with you to your doctor's visits. Follow up with your primary care physician within the next 3-5 days. At that visit you will need blood work (BMP) done. A referral has been provided for you. You will also follow up with the drawing box tender within the next 3-5 days. Referrals: Toby Bright MD [Staff Physician] - 02/04/18 (Dr. Palacio Saturday AM) Kuldip Aranda MD [Staff Physician] - Masoud Amador [Primary Care Provider] - 02/06/18 Disposition: HOME - Home Medications Comprehensive Discharge Medication List: Ambulatory Orders Hydrochlorothiazide [Hctz -] 25 mg PO ASDIR 02/02/18 Atorvastatin Ca [Lipitor] 20 mg PO HS 30 Days #30 tablet 02/03/18 Hydrochlorothiazide [Hctz -] 25 mg PO DAILY 30 Days #0 tablet 02/03/18 Miscellaneous Medical Supply [Outpatient Order] 1 each ASDIR #1 misc Ramipril [Altace] 5 mg PO DAILY 30 Days #30 capsule 02/03/18 This patient is new to me today: Yes Date on this admission: 02/03/18 Emergency Visit: Yes ED Registration Date: 02/02/18 Care time: The patient presented to the Emergency Department on the above date and was hospitalized for further evaluation of their emergent condition. Critical Care patient: No - Discharge Referral Referred to [facility] No
[2018-02-03 16:14] VITALS: BP 117/66; PULSE 62; TEMP 97.2
[2018-02-03] MEDS ORDERED: ATORVASTATIN CA 20 MG TABLET (FP) PO SCH (22:00)
== END 2018-02-03 16:35 | disposition home or self-care (01) ==
LOC: JER 06:48 → JERBED 11:09 → J4W 18:54
PROVIDERS: ADMIT Internal Medicine; ATTEND Internal Medicine
DX: R07.89 Other chest pain (principal); I16.0 Hypertensive urgency; I10 Essential (primary) hypertension; E66.3 Overweight; Z68.24 Body mass index [BMI] 24.0-24.9, adult; E78.5 Hyperlipidemia, unspecified
CPT/HCPCS: 36415; 71045-TC-FY; 80048; 80053; 80061; 82550; 83036; 83721; 83735; 83880; 84100; 84484; 85025; 85379; 85610; 85730; 93005; 93010; 93017; 93018; 93306-TC; 99285-25; G0378

== ENCOUNTER 2018-07-03 16:25 | Emergency (ER) | payer OTHER ==
[2018-07-03 16:57] VITALS: TEMP 98.8; BMI 24.7
[2018-07-03] MEDS ORDERED: HYDROCHLOROTHIAZIDE 25 MG TABLET (FP) PO ONE (17:34)
--- NOTE | 2018-07-03 17:34 | PDOC ---
History of Present Illness <KitNatty - Last Filed: 07/03/18 19:22> <MichaelJaida - Last Filed: 07/03/18 19:47> - General Chief Complaint: Blood Pressure Problem Stated Complaint: HIGH BLOOD PRESSURE Time Seen by Provider: 07/03/18 17:17 Past History <KitMelviy - Last Filed: 07/03/18 19:22> - Past Medical History COPD: No CHF: No HTN: Yes - Immunization History Immunization Up to Date: Yes - Suicide/Smoking/Psychosocial Hx Smoking Status: No Smoking History: Never smoked Have you smoked in the past 12 months: No Number of Cigarettes Smoked Daily: 0 Information on smoking cessation initiated: No Hx Alcohol Use: No Drug/Substance Use Hx: No Substance Use Type: None Hx Substance Use Treatment: No <MichaelJaida - Last Filed: 07/03/18 19:47> - Past Medical History Allergies/Adverse Reactions: Allergies Allergy/AdvReac Type Severity Reaction Status Date / Time No Known Allergies Allergy Verified 02/02/18 06:53 Home Medications: Ambulatory Orders Atorvastatin Ca [Lipitor] 20 mg PO HS 30 Days #30 tablet 02/03/18 Hydrochlorothiazide [Hctz -] 25 mg PO DAILY 30 Days #0 tablet 02/03/18 Ramipril [Altace] 5 mg PO DAILY 30 Days #30 capsule 02/03/18 Hydrochlorothiazide 25 mg PO DAILY #30 tablet 07/03/18 Ramipril 5 mg PO DAILY #30 capsule 07/03/18 Review of Systems - Review of Systems Able to Perform ROS?: Yes Comments:: 07/03/18 19:22 GENERAL/CONSTITUTIONAL: No fever or chills. No weakness. HEAD, EYES, EARS, NOSE AND THROAT: No change in vision. No ear pain or discharge. No sore throat. CARDIOVASCULAR: No chest pain or shortness of breath. RESPIRATORY: No cough, wheezing, or hemoptysis. GASTROINTESTINAL: No nausea, vomiting, diarrhea or constipation. GENITOURINARY: No dysuria, frequency, or change in urination. MUSCULOSKELETAL: No joint or muscle swelling or pain. No neck or back pain. SKIN: No rash NEUROLOGIC: +dizziness. No headache, loss of consciousness, or change in strength/sensation. ENDOCRINE: No increased thirst. No abnormal weight change. HEMATOLOGIC/LYMPHATIC: No anemia, easy bleeding, or history of blood clots. ALLERGIC/IMMUNOLOGIC: No hives or skin allergy. <Natty Pantoja - Last Filed: 07/03/18 19:22> *Physical Exam - Vital Signs Last Vital Signs Temp Pulse Resp BP Pulse Ox 98.8 F 72 16 146/94 100 07/03/18 16:25 07/03/18 17:37 07/03/18 17:37 07/03/18 17:37 07/03/18 17:37 - Physical Exam Comments: 07/03/18 19:24 GENERAL: appears anxious. Awake, alert, and fully oriented, in no acute distress HEAD: No signs of trauma EYES: PERRLA, EOMI, sclera anicteric, conjunctiva clear ENT: Auricles normal inspection, hearing grossly normal, nares patent, oropharynx clear without exudates. Moist mucosa NECK: Normal ROM, supple, no lymphadenopathy, JVD, or masses LUNGS: Breath sounds equal, clear to auscultation bilaterally. No wheezes, and no crackles HEART: Regular rate and rhythm, normal S1 and S2, no murmurs, rubs or gallops ABDOMEN: Soft, nontender, normoactive bowel sounds. No guarding, no rebound. No masses EXTREMITIES: Normal range of motion, no edema. No clubbing or cyanosis. No cords, erythema, or tenderness NEUROLOGICAL: Cranial nerves II through XII grossly intact. Normal speech, normal gait SKIN: Warm, Dry, normal turgor, no rashes or lesions noted. <Natty Pantoja - Last Filed: 07/03/18 19:22> - Vital Signs Last Vital Signs Temp Pulse Resp BP Pulse Ox 98.8 F 79 18 177/115 H 100 07/03/18 16:25 07/03/18 16:25 07/03/18 16:25 07/03/18 16:25 07/03/18 16:25 <Jaida Rodriguez - Last Filed: 07/03/18 19:47> Moderate Sedation - Procedure Monitoring Vital Signs: Procedure Monitoring Vital Signs Temperature 98.8 F 07/03/18 16:25 Pulse Rate 72 07/03/18 17:37 Respiratory Rate 16 07/03/18 17:37 Blood Pressure 146/94 07/03/18 17:37 O2 Sat by Pulse Oximetry (%) 100 07/03/18 17:37 <Natty Pantoja - Last Filed: 07/03/18 19:22> - Procedure Monitoring Vital Signs: Procedure Monitoring Vital Signs Temperature 98.8 F 07/03/18 16:25 Pulse Rate 79 07/03/18 16:25 Respiratory Rate 18 07/03/18 16:25 Blood Pressure 177/115 H 07/03/18 16:25 O2 Sat by Pulse Oximetry (%) 100 07/03/18 16:25 <Jaida Rodriguez - Last Filed: 07/03/18 19:47> Heart Score/ECG Review - ECG Intrepretation Comment:: 07/03/18 18:21 sinus at 64, nl axis, nl interval, no acute st/t wave findings <Jaida Rodriguez - Last Filed: 07/03/18 19:47> ED Treatment Course - LABORATORY CBC & Chemistry Diagram: 07/03/18 17:37 07/03/18 17:37 - ADDITIONAL ORDERS Additional order review: Laboratory Results 07/03/18 07/03/18 17:37 17:37 PT with INR 12.10 INR 1.03 PTT (Actin FS) 36.7 H Sodium 137 Potassium 3.9 Chloride 104 Carbon Dioxide 27 Anion Gap 6 L BUN 15 Creatinine 0.8 Creat Clearance w eGFR 74.75 Random Glucose 93 Calcium 9.5 Magnesium 2.4 Total Bilirubin 0.7 AST 34 ALT 47 Alkaline Phosphatase 99 Creatine Kinase 105 Troponin I < 0.02 B-Natriuretic Peptide 131.4 H Total Protein 7.4 Albumin 3.8 07/03/18 17:37 RBC 3.92 MCV 97.6 H MCHC 34.8 RDW 12.1 MPV 9.7 Neutrophils % 53.4 Lymphocytes % 35.7 Monocytes % 9.0 Eosinophils % 1.1 Basophils % 0.8 - Medications Given in the ED: ED Medications Discontinued Medications Generic Name Dose Route Start Last Admin Trade Name Freq PRN Reason Stop Dose Admin Hydrochlorothiazide 25 mg 07/03/18 17:34 07/03/18 17:58 Hctz - PO 07/03/18 17:35 25 mg ONCE ONE Administration <Natty Pantoja - Last Filed: 07/03/18 19:22> - LABORATORY CBC & Chemistry Diagram: 07/03/18 17:37 07/03/18 17:37 <Jaida Rodriguez - Last Filed: 07/03/18 19:47> Medical Decision Making - Medical Decision Making 07/03/18 18:19 53yo female with hx of htn presnets with dizziness and feeling lightheaded -has not taken hctz for 3 days - ran out -did take her ramipril -has been stressed at work and feeling tired all of the time -neuro intact -no cp/sob -will send labs, ekg -will dose hctz -pt is nontoxic in appearance 07/03/18 18:27 pt feeling better up walking around and has a steady gait 07/03/18 19:46 repeat bp 144/92 stable for dc will refill rx <Jaida Rodriguez - Last Filed: 07/03/18 19:47> *DC/Admit/Observation/Transfer - Attestations Scribe Attestion: 07/03/18 19:24 Documentation prepared by Natty Pantoja, acting as biomedical engineering professor for Jaida Rodriguez DO. <Natty Pantoja - Last Filed: 07/03/18 19:22> - Discharge Dispostion Decision to Admit order: No - Attestations Physician Attestion: 07/03/18 19:46 I, Dr. Jaida Rodriguez DO, attest that this document has been prepared under my direction and personally reviewed by me in its entirety. I further attest, that it accurately reflects all work, treatment, procedures and medical decision -making performed by me. <Jaida Rodriguez - Last Filed: 07/03/18 19:47> Diagnosis at time of Disposition: Uncontrolled hypertension - Discharge Dispostion Disposition: HOME Condition at time of disposition: Stable - Prescriptions Prescriptions: Hydrochlorothiazide 25 mg PO DAILY #30 tablet Ramipril 5 mg PO DAILY #30 capsule - Referrals Referrals: Ernesto Hope MD [Staff Physician] - Julia Solomon [Staff Physician] - Dmitry Mujica MD [Staff Physician] - - Patient Instructions Printed Discharge Instructions: DI for High Blood Pressure Additional Instructions: Please take all medications as prescribed. Please watch your salt intake. Please remember to take a deep breath. I appreciate all your hard work each day. I hope you feel better.
[2018-07-03 17:38] VITALS: BP 146/94; PULSE 72
[2018-07-03] MEDS ORDERED: HYDROCHLOROTHIAZIDE 25 MG TABLET (FP) ONE (17:54)
[2018-07-03 18:31] LABS: BASO % 0.8 % (0-2.0); EOS % 1.1 % (0-4.5); HEMATOCRIT 38.3 % (32.4-45.2); HEMOGLOBIN 13.3 GM/dL (10.7-15.3); LYMPH % 35.7 % (8-40); MCH 33.9 pg (25.7-33.7); MCHC 34.8 g/dl (32.0-36.0); MEAN CELL VOLUME 97.6 fl (80-96); MEAN PLT VOLUME 9.7 fl (7.5-11.1); NEUT % 53.4 % (42.8-82.8); PLATELET COUNT 169 K/MM3 (134-434); RBC 3.92 M/mm3 (3.60-5.2); RDW 12.1 % (11.6-15.6); WHITE BLOOD COUNT 4.1 K/mm3 (4.0-10.0)
[2018-07-03 18:45] LABS: INR 1.03 (0.83-1.09); PROTHROMBIN TIME (PATIENT) 12.1 SEC (9.7-13.0)
[2018-07-03 18:48] LABS: ACTIVATED PTT 36.7 SECONDS (25.2-36.5)
[2018-07-03 19:09] LABS: ALBUMIN 3.8 g/dl (3.4-5.0); ALK PHOS 99 U/L (45-117); ANION GAP 6 MMOL/L (8-16); BILIRUBIN,TOTAL 0.7 mg/dL (0.2-1); BLOOD UREA NITROGEN 15 mg/dL (7-18); CALCIUM 9.5 mg/dL (8.5-10.1); CHLORIDE 104 mmol/L (98-107); CO2 27 mmol/L (21-32); CREATININE 0.8 mg/dL (0.55-1.3); GLUCOSE,RANDOM 93 mg/dL (74-106); MAGNESIUM 2.4 mg/dL (1.8-2.4); N-TERMINAL BNP 131.4 pg/ml (5-125); POTASSIUM 3.9 mmol/L (3.5-5.1); SGOT/AST 34 U/L (15-37); SGPT/ALT 47 U/L (13-61); SODIUM 137 mmol/L (136-145); TOT PROT 7.4 g/dl (6.4-8.2)
[2018-07-03 19:40] LABS: URINE APPEARANCE SLCLOUDY; URINE BILIRUBIN NEGATIVE (<2.0 mg/dL); URINE COLOR YELLOW; URINE GLUCOSE (UA) NEGATIVE (NEGATIVE); URINE KETONE NEGATIVE (NEGATIVE); URINE LEUK ESTERASE NEGATIVE (NEGATIVE); URINE NITRITE NEGATIVE (NEGATIVE); URINE PROTEIN NEGATIVE (NEGATIVE); URINE UROBILINOGEN NEGATIVE mg/dL (0.2-1.0)
--- NOTE | 2018-07-04 11:05 | EKG ---
Test Reason : Blood Pressure : / mmHG Vent. Rate : 064 BPM Atrial Rate : 064 BPM P-R Int : 184 ms QRS Dur : 078 ms QT Int : 400 ms P-R-T Axes : 049 025 030 degrees QTc Int : 412 ms NORMAL SINUS RHYTHM NORMAL ECG WHEN COMPARED WITH ECG OF 02-FEB-2018 06:56, NO SIGNIFICANT CHANGE WAS FOUND Confirmed by YUMIKO PERAZA MD ([id number]) on 07/04/2018 11:05:41 AM Referred By: Confirmed By:YUMIKO PERAZA MD
== END 2018-07-03 20:46 | disposition home or self-care (01) ==
LOC: JER 16:25
DX: I10 Essential (primary) hypertension (principal)
CPT/HCPCS: 36415; 80053; 81003; 82550; 83735; 83880; 84484; 85025; 85610; 85730; 93005; 93010; 99283-25

== ENCOUNTER 2019-04-13 18:29 | Emergency (ER) | payer OTHER ==
--- NOTE | 2019-04-13 18:39 | PDOC ---
Rapid Medical Evaluation Time Seen by Provider: 04/13/19 18:37 Medical Evaluation: Allergies Allergy/AdvReac Type Severity Reaction Status Date / Time No Known Allergies Allergy Verified 07/03/18 20:44 04/13/19 18:37 I performed a brief in-person evaluation of this patient. 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 No change in bladder/bowel habits. No weakness/numbness in legs. Took ibuprofen and applied heat without relief. Pertinent physical exam findings: No midline vertebral tenderness Left lumbar paravertebral tenderness Normal strength and sensation I have ordered the following: None Patient to proceed to FT for further evaluation. Discharge Disposition - Diagnosis Back pain - Referrals - Patient Instructions - Post Discharge Activity
[2019-04-13 18:40] VITALS: BP 130/85; TEMP 98.1; BMI 23.9
[2019-04-13] MEDS ORDERED: KETOROLAC TROMETHAMINE 60 MG/2 ML VIAL IM ONE (18:43)
[2019-04-13] MEDS ORDERED: LIDOCAINE 5% TOPICAL PATCH TP ONE (18:43)
[2019-04-13] MEDS ORDERED: LIDOCAINE 5% TOPICAL PATCH ONE (18:48)
[2019-04-13] MEDS ORDERED: KETOROLAC TROMETHAMINE 60 MG/2 ML VIAL ONE (18:49)
--- NOTE | 2019-04-13 19:10 | PDOC ---
History of Present Illness - General Chief Complaint: Pain Stated Complaint: BACK PAIN Time Seen by Provider: 04/13/19 18:37 History Source: Patient - History of Present Illness Occurred: reports: other Severity: reports: moderate Pain Location: reports: back Past History - Past Medical History Allergies/Adverse Reactions: Allergies Allergy/AdvReac Type Severity Reaction Status Date / Time No Known Allergies Allergy Verified 04/13/19 18:37 Home Medications: Ambulatory Orders Atorvastatin Ca [Lipitor] 20 mg PO HS 30 Days #30 tablet 02/03/18 Hydrochlorothiazide [Hctz -] 25 mg PO DAILY 30 Days #0 tablet 02/03/18 Ramipril [Altace] 5 mg PO DAILY 30 Days #30 capsule 02/03/18 Hydrochlorothiazide 25 mg PO DAILY #30 tablet 07/03/18 Ramipril 5 mg PO DAILY #30 capsule 07/03/18 Hydrochlorothiazide [Hctz -] 25 mg PO DAILY #30 tablet 10/16/18 Ibuprofen [Motrin -] 800 mg PO Q6H #30 tablet 04/13/19 COPD: No CHF: No HTN: Yes - Immunization History Immunization Up to Date: Yes - Psycho Social/Smoking Cessation Hx Smoking Status: No Smoking History: Never smoked Have you smoked in the past 12 months: No Number of Cigarettes Smoked Daily: 0 Hx Alcohol Use: No Drug/Substance Use Hx: No Substance Use Type: None Hx Substance Use Treatment: No Trauma Specific PMHX - Complaint Specific PMHX Back Injury: Yes (last year treated for spasm ) Review of Systems - Review of Systems Constitutional: No: Chills, Fever ABD/GI: No: Nausea, Vomiting, Abdominal cramping : No: Burning, Dysuria, Flank Pain, Hematuria Musculoskeletal: Yes: Back Pain Neurological: No: Headache, Numbness, Weakness *Physical Exam - Vital Signs Last Vital Signs Temp Pulse Resp BP Pulse Ox 98.1 F 80 16 130/85 100 04/13/19 18:38 04/13/19 18:38 04/13/19 18:38 04/13/19 18:38 04/13/19 18:38 - Physical Exam General Appearance: Yes: Appropriately Dressed, Mild Distress HEENT: positive: Normal Voice Neck: positive: Supple Respiratory/Chest: negative: Respiratory Distress Gastrointestinal/Abdominal: positive: Soft. negative: Tender Musculoskeletal: positive: Vertebral Tenderness (to L lower back). 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 No lower extremity weakness, sensory changes, bladder/bowel incontinence. No acute symptoms, nausea, vomiting, fever or chills. Took Tylenol for symptoms initially but states meds not helping now see exam Acute on chronic LBP No red flags at this time Toradol given and lidoderm patch placed Dc w/ pain control and PMD f/u as needed Discharge - Discharge Information Problems reviewed: Yes Clinical Impression/Diagnosis: Back pain Qualifiers: Back pain location: low back pain Chronicity: acute Back pain laterality: left Sciatica presence: without sciatica Qualified Code(s): M54.5 - Low back pain Condition: Good Disposition: HOME - Additional Discharge Information Prescriptions: Ibuprofen [Motrin -] 800 mg PO Q6H #30 tablet - Follow up/Referral - Patient Discharge Instructions Patient Printed Discharge Instructions: DI for Low Back Pain Additional Instructions: Take medication for pain as directed If pain persist, please follow-up with your PMD - Post Discharge Activity
[2019-04-13] MEDS ORDERED: LIDOCAINE PATCH REMOVAL MC SCH (22:00)
[2019-04-13 22:48] VITALS: PULSE 85
== END 2019-04-13 19:01 | disposition home or self-care (01) ==
LOC: JERFT 18:29
CPT/HCPCS: 99281-25

== ENCOUNTER 2019-05-07 19:03 | Emergency (ER) | payer OTHER ==
--- NOTE | 2019-05-07 19:09 | PDOC ---
Rapid Medical Evaluation Chief Complaint: Blood/Body Fluid Exposure SJR Time Seen by Provider: 05/07/19 19:07 Medical Evaluation: Allergies Allergy/AdvReac Type Severity Reaction Status Date / Time No Known Allergies Allergy Verified 04/13/19 18:37 05/07/19 19:07 I performed a brief in-person evaluation of this patient. 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 Pertinent physical exam findings: Alert, no distress. No foreign body visible left eye. I have ordered the following: Instructed patient to remove contacts and rinse eye. Patient to proceed to FT for further evaluation. Discharge Disposition - Diagnosis Employee exposure to body fluids - Discharge Dispostion Condition at time of disposition: Stable - Referrals - Patient Instructions
--- NOTE | 2019-05-07 20:18 | PDOC ---
Post Exposure HPI - General Chief Complaint: Blood/Body Fluid Exposure SJR Stated Complaint: EXPOSURE Time Seen by Provider: 05/07/19 19:07 History Source: Patient Exam Limitations: Clinical Condition - History of Present Illness Initial Comments: 05/07/19 20:14 Patient with no significant past medical history present for evaluation of left eye body fluid exposure while at work today. 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 Patient reported she immediately irrigated her left eye in the eyewash station after incident. Denies blurry vision, change in vision, eye pain. Patient was wearing contact lenses when the incident happened which she removed right away. Denies any other symptoms Timing: this afternoon Exposed Location: Left: Eye(s) Assessing Significant Risk PEP: Yes Mucocutaneous Past History - Past Medical History Allergies/Adverse Reactions: Allergies Allergy/AdvReac Type Severity Reaction Status Date / Time No Known Allergies Allergy Verified 04/13/19 18:37 Home Medications: Ambulatory Orders Atorvastatin Ca [Lipitor] 20 mg PO HS 30 Days #30 tablet 02/03/18 Hydrochlorothiazide [Hctz -] 25 mg PO DAILY 30 Days #0 tablet 02/03/18 Ramipril [Altace] 5 mg PO DAILY 30 Days #30 capsule 02/03/18 Hydrochlorothiazide 25 mg PO DAILY #30 tablet 07/03/18 Ramipril 5 mg PO DAILY #30 capsule 07/03/18 Hydrochlorothiazide [Hctz -] 25 mg PO DAILY #30 tablet 10/16/18 Ibuprofen [Motrin -] 800 mg PO Q6H #30 tablet 04/13/19 Tobramycin 0.3% Ophth Soln [Tobrex *Ophthalmic Solution*] 2 drop OS TID 5 Days # 1 bottle 05/07/19 COPD: No CHF: No HTN: Yes - Immunization History Immunization Up to Date: Yes - Psycho Social/Smoking Cessation Hx Smoking Status: No Smoking History: Never smoked Have you smoked in the past 12 months: No Number of Cigarettes Smoked Daily: 0 Information on smoking cessation initiated: No Hx Alcohol Use: No Drug/Substance Use Hx: No Substance Use Type: None Hx Substance Use Treatment: No General Medical PMHX - Other General PMHX Angina: No Review of Systems - Review of Systems Able to Perform ROS?: Yes Is the patient limited Divehi proficient: No Constitutional: No: Chills, Fever, Malaise HEENTM: Yes: Symptoms Reported, See HPI, Eye Pain (sputum in left eye). No: Blurred Vision, Tearing, Recent change in vision, Double Vision, Cataracts, Ear Pain, Ocular Prothesis, Ear Discharge, Nose Pain, Nose Congestion, Tinnitus, Nose Bleeding, Hearing Loss, Throat Pain, Throat Swelling, Mouth Pain, Dental Problems, Difficulty Swallowing, Mouth Swelling, Other Respiratory: No: Symptoms reported Cardiac (ROS): No: Symptoms Reported ABD/GI: No: Symptoms Reported : No: Symptoms Reported Musculoskeletal: No: Symptoms Reported All Other Systems: Reviewed and Negative *Physical Exam - Vital Signs Last Vital Signs Temp Pulse Resp BP Pulse Ox 97.9 F 80 18 129/84 99 05/07/19 19:07 05/07/19 19:07 05/07/19 19:07 05/07/19 19:07 05/07/19 19:07 - Physical Exam General Appearance: Yes: Nourished, Appropriately Dressed. No: Apparent Distress HEENT: positive: EOMI, NATALIE, Normal ENT Inspection, Pharynx Normal. negative: Pale Conjunctivae Neck: positive: Supple Respiratory/Chest: negative: Respiratory Distress, Accessory Muscle Use Musculoskeletal: positive: Normal Inspection Extremity: positive: Normal Inspection Integumentary: positive: Normal Color Neurologic: positive: Fully Oriented, Alert, Normal Mood/Affect, Normal Response Medical Decision Making - Medical Decision Making 05/07/19 20:15 Patient with no significant past medical history present for evaluation of left eye body fluid exposure while at work today. 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 Patient reported she immediately irrigated her left eye in the eyewash station after incident. Denies blurry vision, change in vision, eye pain. Patient was wearing contact lenses when the incident happened which she removed right away. Denies any other symptoms Exam significant for mild conjunctival erythema otherwise unremarkable exam. Extraocular muscle intact and pupils are equal referred to to light bilateral. Normal visual acuity exam. Given low likelihood of transmission of any STI, will hold off on any STI testing. 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 Follow- up referred ophthalmology if persistent eye pain and irritation after 2 days - Post Discharge Activity Work/Back to School Note: Back to Work
== END 2019-05-07 20:30 | disposition home or self-care (01) ==
LOC: JERFT 19:03
CPT/HCPCS: 99281-25

== ENCOUNTER 2019-06-18 20:56 | Emergency (ER) | payer OTHER ==
[2019-06-18 21:19] VITALS: BP 128/86; PULSE 85; TEMP 98.1; BMI 25.8
--- NOTE | 2019-06-18 21:26 | PDOC ---
History of Present Illness - General Chief Complaint: Lethargy Stated Complaint: SICK Time Seen by Provider: 06/18/19 21:26 History Source: Patient - History of Present Illness Initial Comments: 06/18/19 21:50 Chief complaint: Feeling lethargic Patient 54-year-old female, with history of hypertension who states for the last few months she has been feeling very tired. Patient recently stopped getting her.. Patient has no chest pain, shortness of breath, nausea, vomiting , cold symptoms, cough, dysuria, abdominal pain. Patient got worried and so she came to the ER to get her blood checked. Patient was last seen by her primary care doctor a few months ago but did have to have blood work. Her last blood work was in June which is in the computer. Patient concerned because she has history of anemia. And she is worried about her potassium. GENERAL/CONSTITUTIONAL: No fever, +weakness. No: Dizziness HEAD, EYES, EARS, NOSE AND THROAT: No change in vision. No ear pain or discharge. No sore throat. CARDIOVASCULAR: No chest pain RESPIRATORY: No shortness of breath or cough GASTROINTESTINAL: No pain, nausea, vomiting, diarrhea or constipation GENITOURINARY: No dysuria MUSCULOSKELETAL: No neck or back pain SKIN: No rash NEUROLOGIC: No headache, vertigo, loss of consciousness, or loss of sensation. GENERAL: The patient is awake, alert, and fully oriented, in no acute distress. HEAD: Normal with no signs of trauma. EYES: Pupils equal, round and reactive to light, sclera anicteric, conjunctiva clear. ENT: pharynx: no erythema, no exudate, uvula midline NECK: supple CHEST: clear, nontender, rr ABD: soft, nontender BACK: no tenderness or signs of injury EXTREMITIES: Normal range of motion, no edema. NEUROLOGICAL: Normal speech, normal gait. SKIN: Warm, Dry Past History - Past Medical History Allergies/Adverse Reactions: Allergies Allergy/AdvReac Type Severity Reaction Status Date / Time No Known Allergies Allergy Verified 06/18/19 21:20 Home Medications: Ambulatory Orders Hydrochlorothiazide [Hctz -] 25 mg PO DAILY #30 tablet 10/16/18 COPD: No CHF: No HTN: Yes - Immunization History Immunization Up to Date: Yes - Psycho Social/Smoking Cessation Hx Smoking Status: No Smoking History: Never smoked Have you smoked in the past 12 months: No Number of Cigarettes Smoked Daily: 0 Information on smoking cessation initiated: No Hx Alcohol Use: No Drug/Substance Use Hx: No Substance Use Type: None Hx Substance Use Treatment: No *Physical Exam - Vital Signs Last Vital Signs Temp Pulse Resp BP Pulse Ox 98.1 F 85 16 128/86 100 06/18/19 21:17 06/18/19 21:17 06/18/19 21:17 06/18/19 21:17 06/18/19 21:17 ED Treatment Course - LABORATORY CBC & Chemistry Diagram: 06/18/19 21:38 06/18/19 21:38 Medical Decision Making - Medical Decision Making 06/18/19 22:53 54-year-old female history of hypertension, with ongoing issue with fatigue. Patient will get basic labs, patient concerned regarding anemia, potassium, will also add TSH. Patient has no specific complaints but recently stopped getting her menstruation. Patient also having difficulty sleeping. She is also getting hot flashes. Labs are stable, patient given copy, she will follow-up with her primary care doctor Discussed issues, findings, results, applicable medications and treatments and follow-up. All these were understood and all questions were answered Discharge - Discharge Information Problems reviewed: Yes Clinical Impression/Diagnosis: Fatigue Qualifiers: Fatigue type: other Qualified Code(s): R53.83 - Other fatigue Condition: Stable Disposition: HOME - Admission No - Follow up/Referral Referrals: Dmitry Mujica MD [Primary Care Provider] - - Patient Discharge Instructions Additional Instructions: Follow-up with your regular doctor, bring copies of your labs. Return to the ER if you have any other concerning symptoms. - Post Discharge Activity
[2019-06-18 21:44] LABS: BASO % 0.9 % (0-2.0); EOS % 0.8 % (0-4.5); HEMATOCRIT 43.1 % (32.4-45.2); HEMOGLOBIN 14.7 GM/dL (10.7-15.3); LYMPH % 33.3 % (8-40); MCH 32.7 pg (25.7-33.7); MCHC 34.2 g/dl (32.0-36.0); MEAN CELL VOLUME 95.6 fl (80-96); MEAN PLT VOLUME 8.2 fl (7.5-11.1); MONO % 8.3 % (3.8-10.2); NEUT % 56.7 % (42.8-82.8); PLATELET COUNT 240 K/MM3 (134-434); RDW 12.2 % (11.6-15.6); WHITE BLOOD COUNT 5.5 K/mm3 (4.0-10.0)
[2019-06-18 22:07] LABS: BLOOD UREA NITROGEN 17.3 mg/dL (7-18); CALCIUM 9.4 mg/dL (8.5-10.1); CREATININE 0.9 mg/dL (0.55-1.3); POTASSIUM 3.5 mmol/L (3.5-5.1)
== END 2019-06-18 22:57 | disposition home or self-care (01) ==
LOC: JERFT 20:56
DX: R53.83 Other fatigue (principal); I10 Essential (primary) hypertension
CPT/HCPCS: 36415; 80048; 84443; 85025; 99283-25

== ENCOUNTER 2020-02-05 19:42 | Emergency (ER) | payer OTHER ==
[2020-02-05 19:50] VITALS: BP 130/88; PULSE 94; TEMP 98.1; BMI 26.6
[2020-02-05] MEDS ORDERED: KETOROLAC TROMETHAMINE 60 MG/2 ML VIAL IM ONE (20:03)
[2020-02-05] MEDS ORDERED: KETOROLAC TROMETHAMINE 60 MG/2 ML VIAL ONE (20:05)
--- NOTE | 2020-02-05 20:18 | PDOC ---
History of Present Illness - General Chief Complaint: Pain Stated Complaint: PAIN Time Seen by Provider: 02/05/20 19:54 History Source: Patient - History of Present Illness Occurred: reports: other Severity: Yes: severe Lower Extremity Pain Location: right: knee Past History - Medical History Allergies/Adverse Reactions: Allergies Allergy/AdvReac Type Severity Reaction Status Date / Time No Known Allergies Allergy Verified 02/05/20 19:50 Home Medications: Ambulatory Orders Hydrochlorothiazide [Hctz -] 25 mg PO DAILY #30 tablet 10/16/18 Diazepam [Valium] 5 mg PO ONCE 6 Days #6 tablet MDD 2 09/17/19 Naproxen [Naprosyn] 500 mg PO BID PRN 7 Days #15 tablet MDD 2 09/17/19 Diazepam [Valium] 5 mg PO Q8H PRN #15 tablet MDD 3 10/08/19 Lidocaine 5% Patch [Lidoderm -] 1 patch TP DAILY #7 patch 10/08/19 Methocarbamol 500 mg PO BID 10/08/19 Oxycodone HCl/Acetaminophen [Percocet 5-325 mg Tablet] 1 tab PO Q6H PRN #5 tablet MDD 4 10/08/19 COPD: No CHF: No HTN: Yes - Immunization History Immunization Up to Date: Yes - Psycho-Social/Smoking History Smoking Status: No Smoking History: Never smoked Have you smoked in the past 12 months: No Number of Cigarettes Smoked Daily: 0 Review of Systems - Review of Systems Constitutional: No: Chills, Fever Musculoskeletal: Yes: Joint Pain, Joint Swelling. No: Back Pain Neurological: No: Numbness, Tingling, Weakness *Physical Exam - Vital Signs Last Vital Signs Temp Pulse Resp BP Pulse Ox 98.1 F 94 H 18 130/88 100 02/05/20 19:44 02/05/20 19:44 02/05/20 19:44 02/05/20 19:44 02/05/20 19:44 - Physical Exam 02/05/20 20:19 limping into exam room General Appearance: Yes: Appropriately Dressed, Mild Distress HEENT: positive: Normal Voice Neck: positive: Supple Respiratory/Chest: negative: Respiratory Distress Extremity: positive: Swelling (minimal swelling to R knee diffusely w/ sig ttp to lateral aspect of knee, FROMI w/ pain w/ flexion, no obvious effusion) Integumentary: positive: Dry, Warm Neurologic: positive: Fully Oriented, Alert, Normal Mood/Affect ED Treatment Course - RADIOLOGY Radiology Studies Ordered: Category Date Time Status KNEE 2 POS-RIGHT [RAD] Stat Radiology 02/05/20 20:03 Ordered Medical Decision Making - Medical Decision Making 02/05/20 20:08 54 yo F, h/o HTN, chronic LBP w/ LS disc herniation, meniscal tear to knee 10 years ago (does not remember which one per pt), here w/ severe pain and swelling to R knee. Sxs started 3 weeks ago and on and off. Swelling since improved w/ heat therapy per pt. Also reports pain to L knee but to a lesser degree. see exam R knee pain/swelling No recent trauma No hot, red joint ? old meniscal injury per pt XR w/ ? effusion today IVANA placed Pt declined crutches Dc w/ [facility] and ortho f/u Discharge - Discharge Information Problems reviewed: Yes Clinical Impression/Diagnosis: Right knee pain Qualifiers: Chronicity: acute Qualified Code(s): M25.561 - Pain in right knee Condition: Good Disposition: HOME - Follow up/Referral Referrals: Dmitry Mujica MD [Primary Care Provider] - - Patient Discharge Instructions Patient Printed Discharge Instructions: DI for Knee Pain Additional Instructions: There may be a small knee effusion Wear ivana and elevate leg for swelling take naproxen as needed - Post Discharge Activity Work/Back to School Note: Back to Work
== END 2020-02-05 21:58 | disposition home or self-care (01) ==
LOC: JERFT 19:42
PROC: 3E0233Z Introduction of Anti-inflammatory into Muscle, Percutaneous Approach (ICD-10-PCS; principal; 2020-02-05)
DX: M25.561 Pain in right knee (principal)
CPT/HCPCS: 73560-TC-RT-FY; 99284-25

== ENCOUNTER 2020-03-05 17:17 | Emergency (ER) | payer OTHER ==
[2020-03-05 18:04] VITALS: BP 120/77; PULSE 81; TEMP 97.5; BMI 25.0
== END 2020-03-05 18:44 | disposition home or self-care (01) ==
LOC: JERFT 17:17
DX: Z03.818 Encounter for observation for suspected exposure to other biological agents ruled out (principal)
CPT/HCPCS: 99283-25; C9803; U0003

== ENCOUNTER 2020-09-03 13:57 | Emergency (ER) | payer OTHER ==
[2020-09-03 14:00] VITALS: BP 133/88; PULSE 110; TEMP 98.7; BMI 25.8
[2020-09-03] MEDS ORDERED: IBUPROFEN 600 MG TABLET (FP) PO ONE ×2 (14:33→14:35)
== END 2020-09-03 16:50 | disposition home or self-care (01) ==
LOC: JERFT 13:57 → JER 13:57 → JERFT 16:50
DX: R09.81 Nasal congestion (principal); R09.82 Postnasal drip; R05 Cough; H92.03 Otalgia, bilateral
CPT/HCPCS: 71046-TC-FY; 87804; 87880; 99284-25; C9803; U0003; U0005

== ENCOUNTER 2021-04-18 19:27 | Emergency (ER) | payer OTHER | END 2021-04-18 19:42 | disposition home or self-care (01) | LOC: JVIRT 19:27 | DX: Z11.52 Encounter for screening for COVID-19 (principal) | CPT/HCPCS: C9803; Q3014-GT; U0003; U0005 ==

== ENCOUNTER 2021-08-19 16:18 | Emergency (ER) | payer OTHER ==
[2021-08-19 16:22] VITALS: BP 123/84; PULSE 90; TEMP 98.1; BMI 25.0
[2021-08-19] MEDS ORDERED: KETOROLAC TROMETHAMINE 30 MG/1 ML VIAL IM ONE (17:04)
[2021-08-19] MEDS ORDERED: LIDOCAINE 5% TOPICAL PATCH TP ONE (17:04)
[2021-08-19] MEDS ORDERED: KETOROLAC TROMETHAMINE 30 MG/1 ML VIAL ONE (17:13)
[2021-08-19] MEDS ORDERED: LIDOCAINE 5% TOPICAL PATCH ONE (17:13)
[2021-08-19] MEDS ORDERED: LIDOCAINE PATCH REMOVAL MC SCH (22:00)
== END 2021-08-19 17:50 | disposition home or self-care (01) ==
LOC: JERFT 16:18 → JER 16:18 → JERFT 17:50
PROC: 3E0233Z Introduction of Anti-inflammatory into Muscle, Percutaneous Approach (ICD-10-PCS; principal; 2021-08-19)
DX: M54.42 Lumbago with sciatica, left side (principal)
CPT/HCPCS: 99284-25

== ENCOUNTER 2021-09-21 20:17 | Emergency (ER) | payer OTHER | END 2021-09-21 20:31 | disposition home or self-care (01) | LOC: JVIRT 20:17 | DX: Z20.822 Contact with and (suspected) exposure to COVID-19 (principal) | CPT/HCPCS: 0241U-QW; G2251-GT; Q3014-GT ==

== ENCOUNTER 2021-09-23 15:11 | Emergency (ER) | payer OTHER | END 2021-09-23 15:42 | disposition home or self-care (01) | LOC: JVIRT 15:11 | DX: Z20.822 Contact with and (suspected) exposure to COVID-19 (principal) | CPT/HCPCS: C9803-CS; G2251-GT; Q3014-GT; U0003; U0005 ==

== ENCOUNTER 2021-11-03 21:38 | Emergency (ER) | payer OTHER | END 2021-11-03 22:05 | disposition home or self-care (01) | LOC: JVIRT 21:38 | DX: Z20.822 Contact with and (suspected) exposure to COVID-19 (principal) | CPT/HCPCS: 0241U-QW; G2251-GT; Q3014-GT ==

== ENCOUNTER 2022-01-16 21:53 | Emergency (ER) | payer OTHER | END 2022-01-16 22:13 | disposition home or self-care (01) | LOC: JVIRT 21:53 | DX: Z20.822 Contact with and (suspected) exposure to COVID-19 (principal) | CPT/HCPCS: 0241U-QW; G2251-GT ==

== ENCOUNTER 2022-05-21 23:19 | Emergency (ER) | payer OTHER ==
[2022-05-21 23:29] VITALS: BP 122/77; PULSE 87; RESP 16; TEMP 99.1; BMI 22.5
[2022-05-21] MEDS ORDERED: IBUPROFEN 600 MG TABLET (FP) PO ONE ×2 (23:36→23:55)
[2022-05-21] MEDS ORDERED: ONDANSETRON *ODT* 4 MG TABLET SL ONE (23:36)
[2022-05-21] MEDS ORDERED: ONDANSETRON *ODT* 4 MG TABLET ONE (23:55)
== END 2022-05-22 00:52 | disposition home or self-care (01) ==
LOC: JERFT 23:19 → JER 23:19 → JERFT 05-22 00:52
DX: B34.9 Viral infection, unspecified (principal)
CPT/HCPCS: 0241U-QW; 99283-25; Q0162

== ENCOUNTER 2022-09-14 19:38 | Emergency (ER) | payer OTHER ==
[2022-09-14 19:49] VITALS: BP 121/77; PULSE 82; RESP 16; TEMP 97.7; BMI 18.2
[2022-09-14] MEDS ORDERED: DIPHTH,PERTUSS(ACELL),TET 0.5 ML DISP.SYRIN IM ONE ×2 (19:59→20:27)
[2022-09-14] MEDS ORDERED: AMOX TR/POT CLAV 875MG/125MG TABLETS (FP) PO ONE (20:25)
[2022-09-14] MEDS ORDERED: AMOX TR/POT CLAV 875MG/125MG TABLETS (FP) ONE (20:27)
[2022-09-14] MEDS ORDERED: BACITRACIN ZINC 15 GM TUBE TOPICAL OINTMENT TP ONE (20:29)
[2022-09-14] MEDS ORDERED: IBUPROFEN 600 MG TABLET (FP) PO ONE ×2 (20:41)
[2022-09-14] MEDS ORDERED: BACITRACIN 0.9 GM PACKET ONE (20:41)
== END 2022-09-14 21:46 | disposition home or self-care (01) ==
LOC: JER 19:38
PROC: 3E0234Z Introduction of Serum, Toxoid and Vaccine into Muscle, Percutaneous Approach (ICD-10-PCS; principal; 2022-09-14)
DX: S91.331A Puncture wound without foreign body, right foot, initial encounter (principal); W27.2XXA Contact with scissors, initial encounter
CPT/HCPCS: 73630-TC-RT-FY; 90715; 99283-25

== ENCOUNTER 2022-12-19 18:14 | Emergency (ER) | payer OTHER ==
[2022-12-19 18:34] VITALS: BP 120/82; PULSE 82; RESP 18; TEMP 98.3; BMI 21.1
[2022-12-19] MEDS ORDERED: POTASSIUM CHLORIDE TABS 10 MEQ TABLET.ER (FP) PO ONE (19:24)
[2022-12-19] MEDS ORDERED: POTASSIUM CHLORIDE ORAL LIQUID 20 MEQ/15 ML PO ONE (19:26)
[2022-12-19] MEDS ORDERED: POTASSIUM CHLORIDE ORAL LIQUID 20 MEQ/15 ML ONE (19:38)
[2022-12-19] MEDS ORDERED: POTASSIUM CHLORIDE TABS 20 MEQ TABLET.ER (FP) PO ONE (19:38)
== END 2022-12-19 20:40 | disposition home or self-care (01) ==
LOC: JER 18:14
DX: E87.6 Hypokalemia (principal)
CPT/HCPCS: 99283-25

== ENCOUNTER 2022-12-23 21:50 | Emergency (ER) | payer OTHER ==
[2022-12-23 22:02] VITALS: BP 124/76; PULSE 90; RESP 18; TEMP 98.6; BMI 21.1
[2022-12-23 22:43] LABS: POTASSIUM 3.4 mmol/L (3.5-5.1)
[2022-12-23 22:45] LABS: ALBUMIN 4.1 g/dl (3.4-5.0); BLOOD UREA NITROGEN 13.3 mg/dL (7-18); CALCIUM 9.5 mg/dL (8.5-10.1)
[2022-12-23 22:48] LABS: CREATININE 0.9 mg/dL (0.55-1.3)
[2022-12-23 22:50] LABS: BILIRUBIN,TOTAL 0.9 mg/dL (0.2-1); TOT PROT 7.4 g/dl (6.4-8.2)
== END 2022-12-23 22:50 | disposition home or self-care (01) ==
LOC: JERFT 21:50 → JER 21:50 → JERFT 22:50
DX: R79.89 Other specified abnormal findings of blood chemistry (principal)
CPT/HCPCS: 36415; 80053; 99283-25